=== PATIENT | male | born 1990 | race Caucasian/White ===

== ENCOUNTER 2018-03-16 20:37 | Emergency (ER) | payer OTHER ==
[2018-03-16] MEDS: FAMOTIDINE 20 MG TAB PO (21:40)
[2018-03-16] MEDS: IBUPROFEN 600 MG TAB PO (21:40)
[2018-03-16] MEDS: ONDANSETRON (ODT) 4 MG TAB ODT (21:40)
[2018-03-16] MEDS: DICYCLOMINE 20 MG INJ IM (21:55)
== END 2018-03-16 21:49 | disposition home or self-care (01) ==
LOC: FTE 20:37
DX: K52.9 Noninfective gastroenteritis and colitis, unspecified (principal); J45.909 Unspecified asthma, uncomplicated
CPT/HCPCS: 99284; J0500